=== PATIENT | male | born 1985 | race Caucasian/White ===

== ENCOUNTER 2016-08-28 23:00 | Inpatient (IN) | payer OTHER ==
[~2016-08-28] VITALS: Ht 188 cm; Wt 88.5 kg
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
[2016-08-28] MEDS ORDERED: TRAZODONE50 MG PO (23:14)
[2016-08-28] MEDS ORDERED: VISTARIL25 M2 PO (23:15)
[2016-08-28] MEDS ORDERED: GABAPENTIN100 M2 PO (23:15)
[2016-08-28] MEDS ORDERED: 'CLONIDINE0.1 MG PO (23:15)
[2016-08-28 23:16] VITALS: BP 140/80
[2016-08-28 23:48] LABS: BASO # 0.1 10*3/uL (0.0-0.1); BASO % 0.4 % (0.0-1.0); EOS # 0.1 10*3/uL (0.0-0.4); EOS % 0.6 % (1.0-4.0); HEMATOCRIT 45.5 % (42.0-52.0); HEMOGLOBIN 15.9 g/dl (14.0-18.0); IG # 0.1 10*3/uL (0.0-0.1); LYMPH # 3.7 10*3/uL (1.3-4.4); LYMPH % 24.3 % (27.0-41.0); MEAN CELL VOLUME 91.5 fl (80.0-94.0); MEAN CORPUSCULAR HGB CONC 34.9 g/dl (33.0-37.0); MEAN PLATELET VOLUME 9.2 fl (9.6-12.3); MONO # 1.4 10*3/uL (0.1-1.0); MONO % 9.2 % (3.0-9.0); NEUT % 65.2 % (47.0-73.0); PLATELET COUNT AUTOMATED 324 10*3/uL (130-400); RED BLOOD COUNT 4.97 10*6/uL (4.50-5.90); RED CELL DISTRI WIDTH 12.2 % (0-14.5); WHITE BLOOD COUNT 15.4 10*3/uL (4.8-10.8)
[2016-08-29] LABS: BILIRUBIN 1+ (NEGATIVE); BLOOD NEGATIVE (NEGATIVE); CLARITY CLEAR (CLEAR); COLOR YELLOW (YELLOW); GLUCOSE NEGATIVE (NEGATIVE); KETONE NEGATIVE (NEGATIVE); LEUKO ESTERASE NEGATIVE (NEGATIVE); NITRITE NEGATIVE (NEGATIVE); PH 5.5 (5.0-9.0); PROTEIN TRACE (NEGATIVE); SPECIFIC GRAVITY >= 1.030 (1.005-1.030)
[2016-08-29 00:08] LABS: BACTERIA 1+; RBC 0-2 rbc/hpf (0-2)
[2016-08-29 00:09] LABS: URINE AMPHETAMINES > 1000 (1000ng/ml); URINE BARBITURATES < 200 (200ng/ml); URINE COCAINE > 300 (300ng/ml); URINE REFLEX COMMENT NO (NO)
[2016-08-29 00:10] LABS: ALBUMIN 4.1 gm/dl (3.1-4.5); ALKALINE PHOSPHATASE 108 U/L (45-117); BILIRUBIN, DIRECT 0.4 mg/dL (0.0-0.2); BILIRUBIN, TOTAL 1.1 mg/dl (0.2-1.0); BUN 17 mg/dl (7-24); CARBON DIOXIDE 28 mmol/L (21-32); CHLORIDE 101 mmol/L (98-107); EST GLOM FILT AFRICAN AMERICAN > 60 ml/min; GLUCOSE 79 mg/dL (65-99); POTASSIUM 4.4 mmol/L (3.5-5.1); SGOT/AST 125 IU/L (3-35); SGPT/ALT 182 U/L (12-78); SODIUM 137 mmol/L (136-145); TOTAL PROTEIN 9.5 gm/dL (6.4-8.2)
[2016-08-29 07:12] VITALS: BP 103/61
[2016-08-29 10:09] VITALS: BP 108/60
[2016-08-29 16:00] VITALS: BP 90/52
[2016-08-29 20:00] VITALS: BP 114/52
[2016-08-30] VITALS: BP 107/57
[2016-08-30 04:00] VITALS: BP 114/53
[2016-08-30 07:18] LABS: BASO % 0.3 % (0.0-1.0); EOS # 0.2 10*3/uL (0.0-0.4); EOS % 1.5 % (1.0-4.0); HEMATOCRIT 41.9 % (42.0-52.0); HEMOGLOBIN 14.2 g/dl (14.0-18.0); LYMPH % 36.2 % (27.0-41.0); MEAN CELL VOLUME 93.5 fl (80.0-94.0); MEAN CORPUSCULAR HGB 31.7 pg (27.0-31.0); MEAN CORPUSCULAR HGB CONC 33.9 g/dl (33.0-37.0); MEAN PLATELET VOLUME 9.5 fl (9.6-12.3); MONO # 1.1 10*3/uL (0.1-1.0); MONO % 9.7 % (3.0-9.0); NEUT # 5.7 10*3/uL (2.3-7.9); PLATELET COUNT AUTOMATED 270 10*3/uL (130-400); RED BLOOD COUNT 4.48 10*6/uL (4.50-5.90); RED CELL DISTRI WIDTH 12.3 % (0-14.5); WHITE BLOOD COUNT 10.9 10*3/uL (4.8-10.8)
[2016-08-30 07:42] LABS: ALBUMIN 3.3 gm/dl (3.1-4.5); ALKALINE PHOSPHATASE 108 U/L (45-117); BILIRUBIN, TOTAL 0.5 mg/dl (0.2-1.0); BUN 16 mg/dl (7-24); CARBON DIOXIDE 30 mmol/L (21-32); CHLORIDE 103 mmol/L (98-107); EST GLOM FILT AFRICAN AMERICAN > 60 ml/min; GLUCOSE 92 mg/dL (65-99); POTASSIUM 4.5 mmol/L (3.5-5.1); SGOT/AST 120 IU/L (3-35); SGPT/ALT 155 U/L (12-78); SODIUM 139 mmol/L (136-145)
[2016-08-30 08:00] VITALS: BP 131/65
[2016-08-30 12:00] VITALS: BP 121/67
[2016-08-30 16:00] VITALS: BP 120/71
[2016-08-30 20:06] VITALS: BP 127/76
[2016-08-31] VITALS: BP 98/55
[2016-08-31 08:00] VITALS: BP 118/77
[2016-08-31] MEDS ORDERED: TRAZODONE50 MG PO (10:24)
[2016-08-31] MEDS ORDERED: 'CLONIDINE0.1 MG PO (10:24)
[2016-08-31] MEDS ORDERED: GABAPENTIN100 M2 PO (10:24)
[2016-08-31] MEDS ORDERED: AMOXICILLIN500 M2 PO (10:26)
[2016-08-31 12:00] VITALS: BP 111/67
== END 2016-08-31 12:21 | disposition home or self-care (01) | DRG 917 ==
LOC: ED 23:00 → EDHOLD 08-29 09:18 → 5E 08-29 09:18
PROVIDERS: Emergency Medicine; Internal Medicine
DX: T40.1X2A Poisoning by heroin, intentional self-harm, initial encounter (principal); E43 Unspecified severe protein-calorie malnutrition; R65.10 Systemic inflammatory response syndrome (SIRS) of non-infectious origin without acute organ dysfunction; F11.23 Opioid dependence with withdrawal; T40.4X2A Poisoning by other synthetic narcotics, intentional self-harm, initial encounter; F13.10 Sedative, hypnotic or anxiolytic abuse, uncomplicated; F14.10 Cocaine abuse, uncomplicated; F15.10 Other stimulant abuse, uncomplicated; F41.9 Anxiety disorder, unspecified; B18.2 Chronic viral hepatitis C; F12.10 Cannabis abuse, uncomplicated; F17.210 Nicotine dependence, cigarettes, uncomplicated; J02.9 Acute pharyngitis, unspecified; T65.92XD Toxic effect of unspecified substance, intentional self-harm, subsequent encounter; F43.10 Post-traumatic stress disorder, unspecified; Z71.6 Tobacco abuse counseling; Z68.25 Body mass index [BMI] 25.0-25.9, adult